=== PATIENT | female | born 2000 | race Hispanic/Latino ===

== ENCOUNTER 2024-10-17 14:51 | Emergency (ER) | payer SELFPAY ==
[2024-10-17] MEDS ORDERED: Fluorescein Opthalmic Strip ONE (15:13)
[2024-10-17] MEDS ORDERED: Tetracaine 0.5% PF 4 ML BOT ONE (15:13)
== END 2024-10-17 15:50 | disposition home or self-care (01) ==
LOC: NAV ERS 14:51
DX: S05.02XA Injury of conjunctiva and corneal abrasion without foreign body, left eye, initial encounter (principal); Z75.3 Unavailability and inaccessibility of health-care facilities; W45.8XXA Other foreign body or object entering through skin, initial encounter; Y99.0 Civilian activity done for income or pay
CPT/HCPCS: 99283